=== PATIENT | female | born 1980 | race Caucasian/White ===

== ENCOUNTER 2020-05-18 14:57 | Outpatient (CLI) | payer OTHER, SELFPAY | END 2020-05-18 14:58 | disposition home or self-care (01) | PROVIDERS: PCP Internal Medicine; Visit Provider Obstetrics & Gynecology | DX: D25.9 Leiomyoma of uterus, unspecified (principal) | CPT/HCPCS: 36415; 86850; 86900; 86901 ==

== ENCOUNTER 2020-05-22 00:24 | Outpatient (CLI) | payer OTHER, SELFPAY ==
[2020-05-22 18:51] LABS: SARS-CoV-2 RNA PCR Negative
== END 2020-05-22 00:25 | disposition home or self-care (01) ==
LOC: ANHCOVIDDT 00:24
PROVIDERS: PCP Internal Medicine; Visit Provider Obstetrics & Gynecology
DX: Z01.818 Encounter for other preprocedural examination (principal); Z20.828 Contact with and (suspected) exposure to other viral communicable diseases
CPT/HCPCS: 87635; C9803; U0003

== ENCOUNTER 2020-05-25 00:37 | Day surgery (SDC) | payer OTHER, SELFPAY ==
[2020-05-17 10:06] VITALS: BMI 26.6
--- NOTE | 2020-05-23 08:08 | PM.IMHP ---
H&P: HPI History of Present Illness Date/Time: 05/23/20 08:08 Chief complaint: Uterine Fibroids Narrative: Jeanne Sanders is a 40 year old female 1 para 1 admitted for robotic total vaginal hysterectomy and bilateral salpingectomy. She has chronic pelvic pain and known uterine fibroids. Risks and benefits of this procedure reviewed including exclusive of , aspiration, bleeding, transfusion, perforation injury to bowel, bladder, ureters, or other internal organs with need for a year she was could understand who was received the ACOG handout entitled vaginal elevated postdates handout. She had all questions answered. She has seen a Review of Systems Review of Systems: All systems reviewed & are unremarkable except as noted in HPI and below PMFSH Family History Family History Father Family history of diabetes mellitus in first degree relative Family history of type 2 diabetes mellitus Grandparent Family history of lung cancer Social History Social History Years smoked: 18 Smoking status: Former smoker Tobacco type: cigarettes Second hand tobacco smoke exposure: No Smoking end date: 03/15/20 Alcohol intake: never Meds Home Medications and Allergies Home Medications Medication Instructions Recorded Confirmed Type cholecalciferol (vitamin D3) 125 20,000 unit PO DAILY #30 tablet 04/22/19 05/17/20 Rx mcg (5,000 unit) tablet multivitamin 1 tablet PO DAILY 04/22/19 05/17/20 History zolpidem 5 mg tablet 5 mg PO ONCE 04/22/19 05/17/20 History alprazolam 0.25 mg tablet 0.25 mg PO BID PRN #30 tablet 04/12/20 05/17/20 Rx Allergies Allergy/AdvReac Type Severity Reaction Status Date / Time No Known Allergies Allergy Verified 05/09/20 14:55 Exam Const: General: no acute distress Neck: Neck: supple and no JVD Thyroid: thyroid normal Resp: Effort & Inspection: normal respiratory effort Auscultation: clear to auscultation bilaterally Cardio: Rate: regular rate Rhythm: regular rhythm GI: Inspection: non-distended GI Palp: Yes Soft to palpation, No Tenderness to palpation present (GI) and No Guarding due to palpation present (GI) Auscultation: normal bowel sounds : General: Yes bladder normal to palpation External Female Exam: normal external appearance Speculum Exam - Vagina: normal appearance of the vagina Speculum Exam - Cervix: Cervical os closed Bimanual exam- vagina & uterus: enlarged Skin: General skin exam: no rashes or lesions noted Extrem: General: normal to inspection and no edema Psych: Mental Status: mental status grossly normal Affect: normal affect Assessment and Plan Additional Plan present: Enlarged uterus and pain Plan: Robotic total vaginectomy and bilateral salpingectomy
[2020-05-25] VITALS (17 sets, daily range): BP systolic 94–128; BP diastolic 66–79; PULSE 39–56; RESP 12–16; TEMP 36.2–37.3; O2SAT 97–100
[2020-05-25] MEDS: LACTATED RINGERS 1,000 ML 30 ML IV CONT ×2 (06:40→08:59)
[2020-05-25] MEDS: ACETAMINOPHEN 500 MG TABLET 1000 MG PO (06:49)
[2020-05-25] MEDS: KETOROLAC 15 MG/ML VIAL (*BKC) IV PUSH (06:51)
--- NOTE | 2020-05-25 06:52 | WPDHPUPDATE1 ---
History and Physical Update Update Date/Time: 05/25/20 06:52 History and Physical has been reviewed, including an updated exam of the patient. There are NO changes in the patient's condition. Risks, benefits, and alternatives have been discussed and questions answered. Patient agrees to proceed with procedure.
--- NOTE | 2020-05-25 07:04 | WPDANESEPPF ---
Anes - Initial Pre Proc Eval Procedure: Operation Date: 05/25/20 07:30 Proposed Procedures p Robotic Assisted Total Vaginal Hysterectomy With Bilateral Salpingectomy - Jean-Claude Montalvo MD Date/Time: 05/25/20 07:04 Surgeon: Jean-Claude Montalvo MD Pre Op Diagnosis: Uterine Fibroids Patient Data Age: 40 Gender: F Height: 5 ft 6 in Weight: 74 kg Last Vital Signs Temp 97.5 F L 05/25/20 06:40 Pulse 56 L 05/25/20 06:40 Resp 16 05/25/20 06:40 BP 106/73 05/25/20 06:40 Pulse Ox 98 05/25/20 06:40 Allergies Allergy/AdvReac Type Severity Reaction Status Date / Time No Known Allergies Allergy Verified 05/25/20 06:18 Home Medications Medication Instructions Recorded Confirmed Type cholecalciferol (vitamin D3) 125 20,000 unit PO DAILY #30 tablet 04/22/19 05/25/20 Rx mcg (5,000 unit) tablet multivitamin 1 tablet PO DAILY 04/22/19 05/25/20 History zolpidem 5 mg tablet 5 mg PO ONCE 04/22/19 05/25/20 History alprazolam 0.25 mg tablet 0.25 mg PO BID PRN #30 tablet 04/12/20 05/25/20 Rx hydrocodone-acetaminophen [[place]] 1 tablet PO Q4H PRN #30 tablet 05/25/20 Rx Patient hx anesthesia problems: none Family hx anesthesia problems: none PMFSH Past Medical History Medical History (Updated 05/25/20 @ 07:04 by Mina Bowser MD) Anxiety Migraine Family History Family History Father Family history of diabetes mellitus in first degree relative Family history of type 2 diabetes mellitus Grandparent Family history of lung cancer Social History Social History Years smoked: 18 Smoking status: Former smoker Tobacco type: cigarettes Second hand tobacco smoke exposure: No Smoking end date: 03/15/20 Alcohol intake: never Living arrangements: with family Anes - Eval Final PreProcedure Day of Procedure 05/25/20 07:04 Patient weight: normal Heart: regular rate and rhythm Lungs: clear to auscultation Airway: Mallampati scale class II Neurological: alert and oriented Last oral intake: >/= 8 hours ASA classification: II Emergent: no Anesthetic plan: proceed Anesthesia type and monitoring: general ETT and standard monitoring Informed Consent: The patient's anesthetic plan and its attendant risks and benefits were discussed with the patient/family/POA. Questions were solicited and answers provided to the satisfaction of the patient/family/POA.
[2020-05-25] MEDS: ceFAZolin 2 GM/D5W 50 ML 2 GM/50 ML BAG IVPB (07:22)
--- NOTE | 2020-05-25 08:23 | PM.PROC ---
Procedure Note - Detailed Date of procedure: 05/25/20 Pre-op diagnosis: Uterine Fibroids Surgeon: Jean-Claude Montalvo MD Postop diagnosis: Uterine fibroids/enlarged uterus/pelvic pain Procedure: Robotic total vaginal hysterectomy and bilateral salpingectomies EBL: 10cc Anesthesia: General endotracheal Findings: Normal-appearing ovaries and tubes bilaterally. An enlarged fibroid uterus Complications: None Description of procedure: The patient was prepped and draped in the normal sterile fashion and placed in the dorsal lithotomy position. Under excellent general endotracheal anesthesia weighted speculum was placed in posterior fornix of vagina. The anterior lip of the cervix grasped with single-tooth tenaculum. The uterus sounded to 12cm. Serial dilatation with fragmented dilators performed. This was followed by placement of the 10. [place] and the 4. Cold cup. The remainder of the instruments removed. A 16 [place] catheter was placed in the bladder and drained of clear urine. Gloves were changed. A supraumbilical incision made in the [place] needle passed in the abdomen. The abdomen was filled with CO2 gas [id number]. The 8mm trocar was advanced in the abdomen and the downside visualized. No injury seen. The patient placed in Trendelenburg. Right and left lateral quadrant incisions made and the 8mm trocars advanced under direct visualization assuring no injury. A right upper quadrant incision made in the 10mm trocar advanced under direct visualization assuring no injury. The robot was docked Attention was turned to the console. The left round ligament was grasped, burned, cut. Anteriorly a bladder flap was formed by sharply dissecting the bladder away and reflecting it caudally to the opposite round ligament which was clamped, burned, cut. Next the left fallopian tube was sharply dissected with monopolar cautery and brought to the level of its entrance in the uterus. This was repeated to remove the tube on the right side. Next the left utero-ovarian ligament was skeletonized conserving the left ovary. This was then clamped, burned, cut. This was brought to the level of previously cut round ligament. In like fashion conserving the right ovary the utero-ovarian ligament was clamped, burned, cut. This was brought to the level of the previously cut round ligament. The left cardinal and broad ligaments were then serially skeletonized. These were clamped, burned, cut. They were brought down the lateral edge of the uterus until the large tortuous uterine vessels could be seen. These were individually clamped, burned, cut. In like fashion the right cardinal and broad ligaments were serially skeletonized. These were clamped, burned, cut. There brought down to the level uterine vessels on the right. These were large and tortuous as well. Individual each was clamped, burned, cut. Blanching of the uterus was noted. A colpotomy incision was then made in the uterus cervix tubes removed through the vagina. The vagina was closed with continuous running 0V lock from lateral edge to lateral edge back to the midline. Blood loss was estimated 10cc and irrigation was undertaken. The raw areas were sprinkled with Cliff term. All pedicles appeared dry. The robot was undocked. The gas removed from the abdomen. The incisions closed with 4 O Monocryl and glue. The patient was awakened. All sponge, needle, instrument counts were correct. There were no immediate complications noted.
[2020-05-25] MEDS: ONDANSETRON INJ 4 MG/2 ML VIAL IV PUSH (08:47)
[2020-05-25] MEDS: diphenhydrAMINE HCl INJ 50 MG/ML VIAL 25 MG IV PUSH (09:11)
[2020-05-25] MEDS: SCOPOLAMINE 1.5 MG PATCH TRANSDERM (09:54)
--- NOTE | 2020-05-25 10:07 | OBPPTRN ---
Patient transferred to room # 283 via bed. Oriented to room. Patient verbalizes understanding. VSS. 1020: Pt's pulse running in the 40's. Pt states she exercises regularly and routinely runs a low pulse.
[2020-05-25] MEDS: DEXTROSE 5%/LACTATED RINGERS 1,000 ML 125 ML IV CONT (10:22)
[2020-05-25] MEDS: KETOROLAC 30 MG/ML VIAL (*BKC) IV PUSH (12:08)
[2020-05-25] MEDS: HYDROcodone/acetaminophen (*CRX) 5-325 MG TABLET 1 TAB PO ×4 (14:03→22:30)
[2020-05-25] MEDS: SIMETHICONE 80 MG TAB.CHEW PO ×4 (14:04→22:30)
[2020-05-25] MEDS: DOCUSATE SODIUM 100 MG CAPSULE PO (17:34)
[2020-05-25] MEDS: IBUPROFEN 600 MG TABLET PO (18:41)
[2020-05-26 01:15] VITALS: BP 104/68; PULSE 54; RESP 16; TEMP 36.7; O2SAT 99
[2020-05-26] MEDS: IBUPROFEN 600 MG TABLET PO ×2 (01:22→07:40)
[2020-05-26] MEDS: HYDROcodone/acetaminophen (*CRX) 5-325 MG TABLET 1 TAB PO ×2 (01:22→04:38)
[2020-05-26] MEDS: SIMETHICONE 80 MG TAB.CHEW PO ×3 (01:22→07:41)
[2020-05-26 04:30] VITALS: BP 104/61; PULSE 55; RESP 16; TEMP 36.7; O2SAT 98
[2020-05-26 06:26] LABS: Basophils Percent Auto 0.2 % (0.2-1.2); Eosinophils Absolute Auto 0.1 K/mm3 (0-0.3); Eosinophils Percent Auto 0.6 % (0-4.4); Hematocrit 36.5 % (37.0-47.0); Immature Granulocyte Absolute 0.03 K/mm3 (0.00-0.031); Immature Granulocyte Percent A 0.3 % (0-0.5); Lymphocytes Absolute Auto 2.03 K/mm3 (0.9-3.2); Lymphocytes Percent Auto 20.9 % (18.3-44.2); Mean Corpuscular HGB Conc 32.9 g/dl (32-36); Mean Corpuscular Hemoglobin 32.3 pg (26-34); Mean Corpuscular Volume 98.1 fl (80-100); Mean Platelet Volume 10.7 fl (7.4-10.4); Monocytes Absolute Auto 0.7 K/mm3 (0.1-0.6); Monocytes Percent Auto 6.9 % (2.6-8.5); Neutrophils Absolute Auto 6.9 K/mm3 (1.3-6.7); Neutrophils Percent Auto 71.1 % (45.5-73.1); Platelet Count Result 155 k/mm3 (150-375); Red Blood Count 3.72 M/mm3 (4.2-5.4); Red Cell Distribution Width 12.2 % (11.5-14.5); White Blood Count 9.7 K/mm3 (4.5-10.0)
[2020-05-26] MEDS: ENOXAPARIN 40 MG/0.4 ML SYRINGE SUB-Q (07:40)
[2020-05-26] MEDS: DOCUSATE SODIUM 100 MG CAPSULE PO (07:41)
[2020-05-26 08:00] VITALS: BP 104/71; PULSE 45; RESP 18; TEMP 36.8; O2SAT 100
--- NOTE | 2020-05-26 08:10 | PC.NURSE ---
Discharge instructions given to pt. including when to follow up with Dr. Joselito Fall. Discharge packet given and explained. Pt. verbalized understanding. Very pleasant and cooperative.
--- NOTE | 2020-05-26 09:09 | PM.GYNPNOP ---
POLYMER MATERIALS CONSULTANT - A/P Postoperative Procedures: Procedures Operation Date: 05/25/20 07:30 Actual Procedures Side Surgeon p Robotic Assisted Total Vaginal Hysterectomy With Bilateral Salpingectomy Jean-Claude Montalvo MD Time Spent With Patient Time with patient: less than 15 minutes POLY[employer] MATERIALS CONSULTANT- PN:Subj Post-Op Subjective Date/time seen: 05/26/20 09:09 Interval history: Pain OK. Tolerating diet. Voiding. Would like to go home. Exam Narrative: Exam Narrative: AVSS I/O OK ABD soft, nontender. Incisions c/d/i. EXT nontender POLY[employer] MATERIALS CONSULTANT - PN: Obj Data Vital Signs Vital Signs: Vital Signs - 24 hr 05/25/20 09:10 05/25/20 09:25 05/25/20 09:40 Temperature Pulse Rate 53 L 49 L 44 L Respiratory Rate 14 14 12 Blood Pressure 94/71 L 128/73 126/74 Pulse Oximetry 100 100 100 05/25/20 09:55 05/25/20 10:07 05/25/20 10:15 Temperature 36.5 C Pulse Rate 42 L 41 L 39 L Respiratory Rate 12 16 16 Blood Pressure 128/79 114/75 119/76 Pulse Oximetry 99 100 100 05/25/20 10:30 05/25/20 11:00 05/25/20 11:30 Temperature Pulse Rate 40 L 42 L 45 L Respiratory Rate 16 16 16 Blood Pressure 112/75 118/75 107/70 Pulse Oximetry 100 100 100 05/25/20 12:00 05/25/20 13:00 05/25/20 14:00 Temperature 37.3 C Pulse Rate 48 L 48 L 49 L Respiratory Rate 16 16 16 Blood Pressure 113/70 107/68 111/70 Pulse Oximetry 99 97 98 05/25/20 18:45 05/26/20 01:15 05/26/20 04:30 Temperature 36.8 C 36.7 C 36.7 C Pulse Rate 47 L 54 L 55 L Respiratory Rate 16 16 16 Blood Pressure 113/73 104/68 104/61 Pulse Oximetry 99 99 98 05/26/20 08:00 Temperature 36.8 C Pulse Rate 45 L Respiratory Rate 18 Blood Pressure 104/71 Pulse Oximetry 100 Intake/Output Intake/Output: Intake & Output 05/23/20 05/24/20 05/25/20 05/26/20 23:59 23:59 23:59 23:59 Intake Total 3240 1200 Output Total 2150 1100 Balance 1090 100 Meds/Results Medications: Active Medications Generic Name Dose Route Start Last Admin Trade Name Freq PRN Reason Stop Dose Admin Hydrocodone Bitart/Acetaminophen 1 tab 05/25/20 10:04 05/26/20 04:38 Hydrocodone/Acetaminophen (*Crx) 5-325 Mg Tablet PO 0.5 tab Q3H PRN Administration Pain Rated 5 or Less Hydrocodone Bitart/Acetaminophen 1 tab 05/25/20 10:04 Hydrocodone/Acetaminophen (*Crx) 10-325 Mg Tablet PO Q3H PRN Pain Rated 6 or Greater Docusate Sodium 100 mg 05/25/20 10:04 05/26/20 07:41 Docusate Sodium 100 Mg Capsule PO 100 mg BID VANDANA Administration Enoxaparin Sodium 40 mg 05/26/20 07:00 05/26/20 07:40 Enoxaparin 40 Mg/0.4 Ml Syringe SUB-Q 40 mg DAILY VANDANA Administration Dextrose/Lactated Ringer's 1,000 mls @ 125 mls/hr 05/25/20 10:04 05/25/20 10:22 Dextrose 5%/Lactated Ringers IV CONT 125 mls/hr .Q8H VANDANA Administration Ibuprofen 600 mg 05/25/20 10:04 05/26/20 07:40 Ibuprofen 600 Mg Tablet PO 600 mg Q6H PRN Administration Cramping Ketorolac Tromethamine 30 mg 05/25/20 10:04 05/25/20 12:08 Ketorolac 30 Mg/Ml Vial (*Bkc) IV PUSH 05/30/20 10:05 30 mg Q6H PRN Administration Pain Rated 4-6 Morphine Sulfate 4 mg 05/25/20 10:04 Morphine Sulfate (*Crx) 4 Mg/Ml Inj IV PUSH Q4H PRN Severe breakthrough pain Naloxone HCl 0.1 mg 05/25/20 10:04 Naloxone Hcl 0.4 Mg/Ml Vial IV PUSH Q2M PRN Respiratory rate less than 10 Ondansetron HCl 4 mg 05/25/20 10:04 Ondansetron Inj 4 Mg/2 Ml Vial IV PUSH Q6H PRN Nausea And Vomiting Simethicone 80 mg 05/25/20 10:04 05/26/20 07:41 Simethicone 80 Mg Tab.Chew PO 80 mg Q2H PRN Administration Gas Labs CBC & Chem 7: 05/26/20 04:45 Labs: Laboratory Results - last 24 hr 05/26/20 04:45 WBC 9.7 RBC 3.72 L Hgb 12.0 Hct 36.5 L MCV 98.1 MCH 32.3 MCHC 32.9 RDW 12.2 Plt Count 155 MPV 10.7 H Immature Gran % (Auto) 0.3 Neut % (Auto) 71.1 Lymph % (Auto) 20.9 [place] % (Auto) 6.9 Eos % (Auto) 0.6 B
--- NOTE | 2020-05-26 09:11 | P.DS_ITS ---
DS: Admitting Diagnosis Admitting Diagnosis Admitting Diagnosis: Uterine Fibroids DS: Discharge Diagnosis Discharge Diagnosis (1) Status post robot-assisted surgical procedure: Code(s): Z98.890 - Other specified postprocedural states Status: Acute DS: Data Data Completed and Pending Pending studies at discharge: Pending at discharge 05/25/20 08:02 Surgical [PTH] Routine Labs on day of discharge: Labs from last 24 hours 05/26/20 04:45 WBC 9.7 RBC 3.72 L Hgb 12.0 Hct 36.5 L MCV 98.1 MCH 32.3 MCHC 32.9 RDW 12.2 Plt Count 155 MPV 10.7 H Immature Gran % (Auto) 0.3 Neut % (Auto) 71.1 Lymph % (Auto) 20.9 [place] % (Auto) 6.9 Eos % (Auto) 0.6 Baso % (Auto) 0.2 Lymph # (Auto) 2.03 [place] # (Auto) 0.7 H Eos # (Auto) 0.1 Baso # (Auto) 0.0 Abs Immat Gran (auto) 0.03 Absolute Neuts (auto) 6.9 H Absolute Nucleated RBC 0.0 Nucleated RBC % 0.0 Discharge Plan Discharge Patient Disposition: Home, Self-Care Discharge Instructions: Remove the Scopolamine patch that was placed behind your ear in 72 hours or less. Wash your hands after touching. Some Complications to Watch for: ? Excessive incisional or vaginal drainage (more than on pad an hour). Additional Instructions: ? Expect some vaginal spotting for 2-4 days. ? Nothing vaginally (i.e. douching, intercourse, tampons) until follow up visit. Stand Alone Forms: General Discharge Instructions Follow-up/Referrals: Jean-Claude Montalvo MD [Physician] - Discharge Medications: New hydrocodone-acetaminophen [[place]] 5-325 mg tablet 1 tablet PO Q4H PRN (Reason: pain) Qty: 30 RF: 0 No Action cholecalciferol (vitamin D3) [Vitamin D3] 5,000 unit tablet 20,000 unit PO DAILY Qty: 30 RF: 0 multivitamin [One Daily Multivitamin] Tablet 1 tablet PO DAILY RF: 0 zolpidem [Ambien] 5 mg tablet 5 mg PO ONCE RF: 0 alprazolam 0.25 mg tablet 0.25 mg PO BID PRN (Reason: anxiety) Qty: 30 RF: 0
== END 2020-05-26 08:57 | disposition home or self-care (01) ==
LOC: ANHSURGERY 09:53 → ANHOB2 10:14
PROVIDERS: PCP Internal Medicine; Visit Provider Obstetrics & Gynecology
PROC: (CPT 58552; principal; 2020-05-25 07:30)
DX: D25.1 Intramural leiomyoma of uterus (principal); D25.2 Subserosal leiomyoma of uterus; N80.0 Endometriosis of uterus; F41.9 Anxiety disorder, unspecified; Z87.891 Personal history of nicotine dependence
CPT/HCPCS: 58552; S2900; 36415; 85025; 88307; 99199; A9270; J0690; J1100; J1170; J1200; J1650; J1885; J2250; J2405; J2704; J2710; J3010; J7030; J7120; J7121

== ENCOUNTER 2021-04-02 17:07 | Emergency (ER) | payer BC, SELFPAY ==
--- NOTE | ~2021-04-02 | XR_ITS ---
EXAMINATION: XR chest 2V DATE: 04/02/2021 17:29 INDICATION: Left-sided chest pain TECHNIQUE: PA and lateral views of the chest are obtained. COMPARISON: None available FINDINGS: The lungs are free of acute opacities. There is no pleural effusion or pneumothorax. The ca rdiomediastinal silhouette is normal. There is mild thoracic spondylosis. IMPRESSION: 1. No acute cardiopulmonary abnormality. Reviewed, dictated and finalized at location A.
--- NOTE | 2021-04-02 17:09 | ECG_ITS ---
Measurements Intervals [place] Rate: 62 P: 53 DE: 143 QRS: 62 QRSD: 93 T: 54 QT: 397 QTc: 405 Interpretive Statements SINUS RHYTHM VENTRICULAR PREMATURE COMPLEX BORDERLINE ECG Electronically Signed On 04-02-2021 20:11:19 CDT by Melvin Foster D.O.
[2021-04-02 17:15] VITALS: BP 130/83; PULSE 77; RESP 17; TEMP 36.2; O2SAT 98
[2021-04-02 17:35] LABS: Basophils Absolute Auto 0.1 K/mm3 (0.0-0.1); Basophils Percent Auto 0.6 % (0.2-1.2); Eosinophils Absolute Auto 0.2 K/mm3 (0-0.3); Eosinophils Percent Auto 2.4 % (0-4.4); Hematocrit 42.6 % (37.0-47.0); Hemoglobin 14.2 g/dL (12.0-15.0); Immature Granulocyte Absolute 0.02 K/mm3 (0.00-0.031); Immature Granulocyte Percent A 0.3 % (0-0.5); Lymphocytes Absolute Auto 2.05 K/mm3 (0.9-3.2); Lymphocytes Percent Auto 26.4 % (18.3-44.2); Mean Corpuscular HGB Conc 33.3 g/dl (32-36); Mean Corpuscular Hemoglobin 32.3 pg (26-34); Mean Corpuscular Volume 96.8 fl (80-100); Mean Platelet Volume 9.6 fl (7.4-10.4); Monocytes Absolute Auto 0.6 K/mm3 (0.1-0.6); Monocytes Percent Auto 7.1 % (2.6-8.5); Neutrophils Absolute Auto 4.9 K/mm3 (1.3-6.7); Neutrophils Percent Auto 63.2 % (45.5-73.1); Platelet Count Result 208 k/mm3 (150-375); White Blood Count 7.8 K/mm3 (4.5-10.0)
[2021-04-02 17:42] LABS: INR 0.9; Prothrombin Time 12.2 Seconds (11.1-14.7)
[2021-04-02 17:43] LABS: Partial Thromboplastin Time 28.5 SECONDS (22.3-36.8)
[2021-04-02 17:45] LABS: Anion Gap 8 mmol/L (8-16); Blood Urea Nitrogen 20 mg/dL (7-17); Calcium 9.9 mg/dL (8.4-10.2); Carbon Dioxide 31 mmol/L (22-30); Chloride 101 mmol/L (98-107); Estimated CRCL calculation 68 ml/min; Estimated Glomerular Filt Rate > 60; Glucose 86 mg/dL (65-110); Potassium 3.6 mmol/L (3.4-5.0); Sodium 140 mmol/L (137-145)
[2021-04-02 17:58] LABS: Troponin I < 0.012 ng/mL (0.000-0.034)
[2021-04-02 18:32] VITALS: BP 126/84; PULSE 54; RESP 12; O2SAT 98
[2021-04-02] MEDS: ASPIRIN 81 MG CHEWABLE TABLET 324 MG PO (18:33)
--- NOTE | 2021-04-02 19:08 | ED.GENADULT ---
HPI - General Adult General Chief complaint: Chest Pain Stated complaint: chest pain Time Seen by Provider: 04/02/21 18:26 History of Present Illness HPI narrative: Patient is a 41-year-old female who presents ER with left-sided chest pain. Intermittent over the last couple days. Last about 3 minutes at a time. Began anterior chest is wraparound towards her back. No rash. No fevers or chills or sweats. Denies sinus congestion or sore throat or productive cough. No exertional shortness of breath. No hemoptysis. No lower extremity swelling. She is not on control. No history of coronary disease or previous PE/DVT. No history of trauma, reports she works out regularly. Related Data Home Medications Medication Instructions Recorded Confirmed multivitamin 1 tablet PO DAILY 04/22/19 02/03/21 zolpidem 5 mg tablet 5 mg PO ONCE 04/22/19 02/03/21 famotidine 20 mg tablet 20 mg PO DAILY 10/10/20 02/03/21 Allergies Allergy/AdvReac Type Severity Reaction Status Date / Time No Known Allergies Allergy Verified 01/30/21 16:26 Review of Systems Review of Systems: All systems reviewed & are unremarkable except as noted in HPI and below Constitutional: Constitutional: Denies chills, Denies fever(s) and Denies weakness ENT: Denies nasal congestion and Denies sore throat Cardiovascular: Cardiovascular: Reports chest pain and Denies radiating jaw, neck or arm pain Respiratory: Respiratory: Denies cough, Denies dyspnea and Denies wheezing Gastrointestinal: Gastrointestinal: Denies abdominal pain, Denies diarrhea, Denies nausea and Denies vomiting Musculoskeletal: Musculoskeletal: Denies back pain and Denies muscle cramps Neurologic: Denies focal weakness and Denies numbness [facility] Past Medical History Medical History (Updated 04/02/21 @ 19:13 by Ashwin Davila MD) Anxiety Chronic GERD Migraine Surgical History Surgical History (Updated 04/02/21 @ 19:11 by Ashwin Davila MD) No pertinent past surgical history Family History Family History Father Family history of diabetes mellitus in first degree relative Family history of type 2 diabetes mellitus Diabetes mellitus Grandparent Family history of lung cancer Mother Depression Social History Social History Years smoked: 18 Smoking status: Former smoker Tobacco type: cigarettes Second hand tobacco smoke exposure: No Smoking end date: 03/15/20 Alcohol intake: never Substance use: never Substance use type: does not use Exam Narrative: GENERAL: Well-appearing, well-nourished, and in no acute distress. HEAD: Normocephalic, atraumatic. CHEST: Clear to auscultation. No respiratory distress. Mild tenderness to the left chest wall with lateral compression. HEART: Regular rate and rhythm. Normal peripheral pulses. ABDOMEN: Soft, nontender, nondistended. EXTREMITIES: Normal range of motion. No edema. SKIN: Warm, dry, no rash. NEURO: Alert and oriented x3. PSYCH: Normal mood and affect. Course Course Emergency Course: Patient informed of results. Discharge home. Recommend scheduled NSAIDs for discomfort. Chest wall strain versus pleurisy. Vital Signs Vital signs: Vital Signs Temperature 97.2 F L 04/02/21 17:15 Pulse Rate 77 04/02/21 17:15 Respiratory Rate 17 04/02/21 17:15 Blood Pressure 130/83 04/02/21 17:15 Pulse Oximetry 98 04/02/21 17:15 Temperature 97.2 F L 04/02/21 17:15 Pulse Rate 54 L 04/02/21 18:32 Respiratory Rate 12 04/02/21 18:32 Blood Pressure 126/84 04/02/21 18:32 Pulse Oximetry 98 04/02/21 18:32 Medical Decision Making Vital Signs Vital Signs: Vital Signs Temperature 97.2 F L 04/02/21 17:15 Pulse Rate 77 04/02/21 17:15 Respiratory Rate 17 04/02/21 17:15 Blood Pressure 130/83 04/02/21 17:15 Pulse Oximetry 98 04/02/21 17:15 Temperat
[2021-04-02 19:22] VITALS: BP 114/97; PULSE 53; RESP 16; O2SAT 100
== END 2021-04-02 19:24 | disposition home or self-care (01) ==
PROVIDERS: Emergency Medicine; Emergency Provider Emergency Medicine
DX: R07.89 Other chest pain (principal); K21.9 Gastro-esophageal reflux disease without esophagitis; F41.9 Anxiety disorder, unspecified; Z87.891 Personal history of nicotine dependence; I49.3 Ventricular premature depolarization
CPT/HCPCS: 36415; 71046; 80048; 84484; 85025; 85610; 85730; 93005; 99284; A9270

== ENCOUNTER → 2021-04-09 11:58 | Outpatient (CLI) | payer BC, SELFPAY ==
--- NOTE | ~2021-04-09 | MMUS_ITS ---
EXAMINATION: MM diagnostic fabi BI w [place], US breast BI complete HISTORY: Left axillary lump, left breast pain. History of recent left breast infection treated with a ntibiotics, with recent reemergence of left breast pain. TECHNIQUE: Full field bilateral ML, MLO and craniocaudal and spot right MLO, MLO and craniocaudal 3-D tomosynthesis images were performed and synthetic 2-D images were generated. CAD analysis was submit mohsen and interpreted. High resolution complete bilateral and left axillary breast ultrasound was perfo rmed, including all 4 quadrants and subareolar areas of both breasts. COMPARISON: 04/03/2017 diagnostic left mammogram BREAST PARENCHYMAL COMPOSITION: There are scattered areas of fibroglandular density. FINDINGS: MAMMOGRAPHIC FINDINGS: There is asymmetric density of the right breast compared to the left. This may be due to asymmetric f ibroglandular stroma, but right complete breast ultrasound examination was performed to exclude any p ossible mass. No left breast mass lesion is detected. Stable small left axillary tail circumscribed benign-appearin g lymph node, unchanged since 04/03/2017. No interval left breast mass, architectural distortion, mal ignant calcification, skin thickening or retraction is noted since 04/03/2017. ULTRASOUND: No suspicious mass or shadowing of either breast or left axilla is detected. IMPRESSION: 1. Benign finding; benign right fibroglandular asymmetry 2. Routine mammographic screening is recommended BI-RADS Category 2: Benign finding(s). Reviewed, dictated and finalized at location A. IMPRESSION: 1. Benign finding; benign right fibroglandular asymmetry 2. Routine mammographic screening is recommended BI-RADS Category 2: Benign finding(s).
== END ==
PROVIDERS: Visit Provider Obstetrics & Gynecology
DX: N64.4 Mastodynia (principal)
CPT/HCPCS: 76641; 77062; 77066; G0279

== ENCOUNTER → 2022-04-11 14:28 | Outpatient (CLI) | payer BC, SELFPAY ==
--- NOTE | ~2022-04-11 | MM_ITS ---
EXAMINATION: MM screening [facility] BI w [place] HISTORY: Screening TECHNIQUE: Craniocaudal and mediolateral oblique 3-D tomosynthesis images were obtained and synthetic 2-D images were generated. CAD analysis was submitted and interpreted. COMPARISON: Comparison to multiple prior studies sequentially, with oldest reviewed study dated 03/16. BREAST PARENCHYMAL COMPOSITION: There are scattered areas of fibroglandular density. FINDINGS: There is no evidence of suspicious mass, calcification, or architectural distortion to sugg est malignancy in either breast. There has been no suspicious interval change. IMPRESSION: 1. No mammographic evidence of malignancy. 2. Recommend routine screening mammography in one year. BI-RADS Category 1: Negative Reviewed, dictated and finalized at location A.
== END ==
PROVIDERS: PCP Internal Medicine; Visit Provider Obstetrics & Gynecology
DX: Z12.31 Encounter for screening mammogram for malignant neoplasm of breast (principal)
CPT/HCPCS: 77063; 77067

== ENCOUNTER → 2022-04-11 14:32 | Outpatient (CLI) | payer BC, SELFPAY ==
--- NOTE | ~2022-04-11 | XR_ITS ---
XR cervical spine 4-5V 04/11/2022 14:44 Indication: Neck pain Procedure: 4 views of the cervical spine Comparison: 11/30/2017 Findings: There is mild disc narrowing at C4-5, C5-6 and C6-7. There is normal cervical alignment. No prevertebral soft tissue swelling. Odontoid process is normal. Lateral masses normally aligned. Ther e is mild uncinate degenerative change at multiple levels. Lung apices are normal. Impression: 1: Mild cervical spondylosis. Reviewed, dictated and finalized at location B. Impression: 1: Mild cervical spondylosis.
== END ==
PROVIDERS: PCP Internal Medicine; Visit Provider Physician Assistant
DX: M47.892 Other spondylosis, cervical region (principal)
CPT/HCPCS: 72050

== ENCOUNTER 2023-06-08 20:48 | Emergency (ER) | payer BC, SELFPAY ==
[2023-06-08] VITALS (14 sets, daily range): BP systolic 109–150; BP diastolic 69–93; PULSE 52–63; RESP 10–19; TEMP 36.2; O2SAT 98–100
--- NOTE | ~2023-06-08 | XR_ITS ---
EXAMINATION: XR chest 2V 06/08/2023 21:22 INDICATION: Chest pain PROCEDURE: 2 view chest COMPARISON: Comparison to multiple prior studies sequentially, with oldest reviewed study dated 04/16. FINDINGS: The lungs are clear. The cardiomediastinal silhouette is within normal limits. There are no pleural effusions. There is no pneumothorax suspected. IMPRESSION: 1: NO ACUTE CARDIOPULMONARY DISEASE. Reviewed, dictated and finalized at location A. 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
--- NOTE | 2023-06-08 20:54 | ECG_ITS ---
Measurements Intervals [place] Rate: 63 P: 68 NM: 158 QRS: 53 QRSD: 86 T: 51 QT: 406 QTc: 418 Interpretive Statements SINUS RHYTHM COMPARED TO ECG 04/02/2021 17:12:59 NO SIGNIFICANT CHANGES Electronically Signed On 06-09-2023 15:55:08 ACCOUNT ADVISOR by Tan Oconnor M.D.
--- NOTE | 2023-06-08 21:07 | ED.CHESTPAIN ---
HPI - Chest Pain General Chief Complaint: Chest Pain Stated Complaint: CP Time Seen by Provider: 06/08/23 21:01 Source: patient Mode of arrival: ambulatory Limitations: no limitations History of Present Illness HPI narrative: Patient p/w chest pain at rest. She is also dizzy. No palliating/provoking factors. Described as a dull pain that radiates to left arm with numbness. It had also radiated to her neck and jaw but she states this has improved. She denies any fevers or cough or lower extremity edema. 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 She states she was experiencing chest pain Thursday but this was located under her left breast just different than pain today. No associated diaphoresis. She has been nauseated but denies any vomiting shortness breast. In general , she has been fatigued. Related Data Home Medications Medication Instructions Recorded Confirmed multivitamin (One Daily 1 tablet PO DAILY 04/22/19 11/03/22 Multivitamin tablet) zolpidem 5 mg tablet (Ambien) 5 mg PO ONCE 04/22/19 11/03/22 famotidine 20 mg tablet 20 mg PO DAILY 10/10/20 11/03/22 levothyroxine 25 mcg capsule 25 mcg PO DAILY 04/11/22 11/03/22 Allergies Allergy/AdvReac Type Severity Reaction Status Date / Time No Known Allergies Allergy Verified 06/08/23 20:53 [facility] Past Medical History Medical History Anxiety Chronic GERD Migraine Surgical History Surgical History No pertinent past surgical history Family History Family History Father Family history of diabetes mellitus in first degree relative Family history of type 2 diabetes mellitus Diabetes mellitus Grandparent Family history of lung cancer Mother Depression Social History Social History Years smoked: 18 Smoking status: Former smoker Tobacco type: cigarettes Second hand tobacco smoke exposure: No Smoking end date: 03/15/20 Alcohol intake: never Substance use: never Substance use type: does not use Lack of Transportation: No Lack of Food: Never True Current Housing: I Have Housing Concerned About Future Housing: No Difficulty Paying Gas/Electric Bills: No Difficulty Paying for Meds: No Currently Unemployed: No Difficulty w/ Childcare or Family Care: No Living arrangements: with family Exam Narrative: GENERAL: Well-appearing, well-nourished, and in no acute distress. HEAD: Normocephalic, atraumatic. EYES: Non injected, non icteric ENT: Nares clear, no rhinorrhea or epistaxis. NECK: Supple. CHEST: Clear to auscultation without wheezes/crackles/consolidation. No respiratory distress. Speaking in full sentences. HEART: Regular rate and rhythm. ABDOMEN: Soft, nondistended. EXTREMITIES: Normal range of motion. No edema. SKIN: Warm, dry, no rash. NEURO: No focal deficits. Alert and oriented x3. PSYCH: Normal mood and affect. Course Vital Signs Vital signs: Vital Signs Temperature 97.2 F L 06/08/23 20:50 Pulse Rate 60 06/08/23 20:50 Respiratory Rate 16 06/08/23 20:50 Blood Pressure 150/88 H 06/08/23 20:50 Pulse Oximetry 100 06/08/23 20:50 Oxygen Delivery Room Air 06/08/23 20:50 Temperature 97.2 F L 06/08/23 20:50 Pulse Rate 57 L 06/09/23 00:16 Respiratory Rate 14 06/09/23 00:16 Blood Pressure 114/75 06/09/23 00:16 Pulse Oximetry 100 06/09/23 00:16 Oxygen Delivery Room Air 06/08/23 21:03 MDM - Chest Pain MDM Narrative Medical decision making narrative: Patient presents with chest pain radiating to her left arm. Unremarkable CBC. Negative troponin x2. Viral test negative. Work up without clear etiology for cause of chest pain. She is otherwise low risk and will be discha
[2023-06-08 21:17] LABS: Basophils Percent Auto 0.7 % (0.2-1.2); Eosinophils Absolute Auto 0.2 K/mm3 (0-0.3); Eosinophils Percent Auto 3.3 % (0-4.4); Immature Granulocyte Absolute 0.01 K/mm3 (0.00-0.031); Immature Granulocyte Percent A 0.2 % (0-0.5); Lymphocytes Absolute Auto 2.42 K/mm3 (0.9-3.2); Lymphocytes Percent Auto 39.3 % (18.3-44.2); Mean Corpuscular HGB Conc 32.5 g/dl (32-36); Mean Corpuscular Hemoglobin 31.5 pg (26-34); Mean Corpuscular Volume 96.9 fl (80-100); Mean Platelet Volume 9.9 fl (7.4-10.4); Monocytes Absolute Auto 0.4 K/mm3 (0.1-0.6); Monocytes Percent Auto 7.2 % (2.6-8.5); Neutrophils Percent Auto 49.3 % (45.5-73.1); Platelet Count Result 206 k/mm3 (150-375); Red Blood Count 4.13 M/mm3 (4.2-5.4); Red Cell Distribution Width 12.3 % (11.5-14.5); White Blood Count 6.2 K/mm3 (4.5-10.0)
[2023-06-08 21:27] LABS: Partial Thromboplastin Time 30.8 SECONDS (22.3-36.8); Prothrombin Time 13.9 Seconds (11.1-14.7)
[2023-06-08 21:30] LABS: Alanine Aminotransferase 19 U/L (6-35); Albumin Level 4.5 g/dL (3.5-5.1); Alkaline Phosphatase 43 U/L (38-126); Anion Gap 9 mmol/L (8-16); Aspartate Amino Transferase 27 U/L (14-36); Bilirubin,Total 0.3 mg/dL (0.2-1.3); Blood Urea Nitrogen 11 mg/dL (7-17); Carbon Dioxide 28 mmol/L (22-30); Chloride 104 mmol/L (98-107); Estimated CRCL calculation 67 ml/min; Estimated Glomerular Filt Rate > 60; Glucose 112 mg/dL (65-110); Lipase 150 U/L (23-300); Potassium 3.5 mmol/L (3.4-5.0); Sodium 141 mmol/L (137-145)
[2023-06-08 21:41] LABS: Troponin I < 0.012 ng/mL (0.000-0.034)
[2023-06-08 23:37] LABS: Influenza A QL RT-PCR Negative (Negative); Influenza B QL RT-PCR Negative (Negative); RSV RNA, RT-PCR Negative (Negative); SARS-CoV-2 RNA PCR Negative (Negative)
[2023-06-09 00:01] VITALS: BP 109/82; PULSE 57; RESP 11; O2SAT 100
[2023-06-09 00:16] VITALS: BP 114/75; PULSE 57; RESP 14; O2SAT 100
[2023-06-09 00:20] LABS: Troponin I < 0.012 ng/mL (0.000-0.034)
== END 2023-06-09 00:27 | disposition home or self-care (01) ==
PROVIDERS: Emergency Medicine; Emergency Provider Student in an Organized Health Care Education/Training Program; PCP Internal Medicine
DX: R07.9 Chest pain, unspecified (principal); Z87.891 Personal history of nicotine dependence; Z20.822 Contact with and (suspected) exposure to COVID-19
CPT/HCPCS: 36415; 71046; 80053; 83690; 84484; 85025; 85610; 85730; 87637; 93005; 99284

== ENCOUNTER → 2023-07-09 09:58 | Outpatient (CLI) | payer OTHER, SELFPAY ==
--- NOTE | ~2023-07-09 | MM_ITS ---
EXAMINATION: MM screening [facility] BI w [facility] HISTORY: Screening mammogram TECHNIQUE: Craniocaudal and mediolateral oblique 3-D tomosynthesis images were obtained and synthetic 2-D images were generated. CAD analysis was submitted and interpreted. COMPARISON: 06/11/2022, 04/09/2021, 04/03/2017 BREAST PARENCHYMAL COMPOSITION: There are scattered areas of fibroglandular density. FINDINGS: There is stable focal asymmetry of the outer right breast. No suspicious mass, calcificatio n, or architectural distortion are identified in either breast to suggest malignancy. There has been no suspicious interval change. IMPRESSION: 1. No mammographic evidence of malignancy. 2. Recommend routine screening mammography in one year. BI-RADS Category 2: Benign finding(s). Reviewed, dictated and finalized at location A. 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
== END ==
PROVIDERS: PCP Obstetrics & Gynecology; Visit Provider Obstetrics & Gynecology
DX: Z12.31 Encounter for screening mammogram for malignant neoplasm of breast (principal)
CPT/HCPCS: 77063; 77067

== ENCOUNTER 2023-09-26 10:04 | Outpatient (CLI) | payer OTHER, SELFPAY ==
--- NOTE | ~2023-09-26 | XR_ITS ---
EXAMINATION: XR thoracic spine 2V DATE: 09/26/2023 10:23 INDICATION: Thoracic back pain. TECHNIQUE: 3 views of thoracic spine including standing views were obtained. COMPARISON: Chest 2 views 06/08/2023 FINDINGS: Bone alignment is normal. There is mild chronic anterior wedging of T11, and T12, and L1 ve rtebral bodies. There is mildly decreased disc height at T6-T7. There are endplate osteophytes at mos t levels. There is multilevel mild facet joint osteoarthritis. IMPRESSION: 1. Mild thoracic spondylosis. Reviewed, dictated and finalized at location E.
--- NOTE | ~2023-09-26 | XR_ITS ---
EXAMINATION: XR cervical spine min 6V DATE: 09/26/2023 10:24 INDICATION: Neck pain. TECHNIQUE: 7 views of cervical spine including flexion and extension views were obtained. COMPARISON: Cervical spine radiographs 04/11/2022 FINDINGS: There is hypolordosis of cervical spine. There is 6 degrees levocurvature of cervical spine . There is no abnormal motion with flexion or extension. Vertebral body heights are normal. There is mildly decreased disc height at C4-C5 and moderately decreased disc height at C5-C6. There is multile conor mild facet joint osteoarthritis. There is no left neural foraminal stenosis. The right neural for yanely are not well visualized on the oblique view. There is mild central canal stenosis at C5-C6. No prevertebral soft tissue swelling. IMPRESSION: 1. Moderate spondylosis at C5-C6 and mild spondylosis at other levels. Reviewed, dictated and finalized at location E.
== END 2023-09-26 10:05 ==
LOC: MICIMG 10:06
PROVIDERS: PCP Internal Medicine; Visit Provider Chiropractor
DX: M54.2 Cervicalgia (principal); M54.6 Pain in thoracic spine; M43.02 Spondylolysis, cervical region; M43.04 Spondylolysis, thoracic region
CPT/HCPCS: 72052; 72070

== ENCOUNTER 2023-10-05 08:02 | Emergency (ER) | payer OTHER, SELFPAY ==
[2023-10-05] VITALS (16 sets, daily range): BP systolic 106–122; BP diastolic 68–83; PULSE 57–62; RESP 10–21; TEMP 36.6; O2SAT 98–100
--- NOTE | ~2023-10-05 | XR_ITS ---
EXAMINATION: XR chest 2V 10/05/2023 08:43 INDICATION: Chest pain PROCEDURE: 2 view chest COMPARISON: 06/08/2023 FINDINGS: The lungs are clear. The cardiomediastinal silhouette is within normal limits. There are no pleural effusions. There is no pneumothorax suspected. IMPRESSION: 1: NO ACUTE CARDIOPULMONARY DISEASE. Reviewed, dictated and finalized at location B.
--- NOTE | 2023-10-05 08:14 | ECG_ITS ---
SEE SCANNED COPY FOR CONFIRMED REPORT MTDD
[2023-10-05 08:33] LABS: Basophils Percent Auto 0.6 % (0.2-1.2); Eosinophils Absolute Auto 0.2 K/mm3 (0-0.3); Hematocrit 41.4 % (37.0-47.0); Hemoglobin 13.6 g/dL (12.0-15.0); Immature Granulocyte Absolute 0.01 K/mm3 (0.00-0.031); Immature Granulocyte Percent A 0.2 % (0-0.5); Lymphocytes Absolute Auto 1.24 K/mm3 (0.9-3.2); Lymphocytes Percent Auto 24.6 % (18.3-44.2); Mean Corpuscular HGB Conc 32.9 g/dl (32-36); Mean Corpuscular Hemoglobin 31.9 pg (26-34); Mean Platelet Volume 9.5 fl (7.4-10.4); Monocytes Absolute Auto 0.3 K/mm3 (0.1-0.6); Monocytes Percent Auto 5.7 % (2.6-8.5); Neutrophils Absolute Auto 3.3 K/mm3 (1.3-6.7); Neutrophils Percent Auto 65.9 % (45.5-73.1); Platelet Count Result 192 k/mm3 (150-375); Red Blood Count 4.27 M/mm3 (4.2-5.4); Red Cell Distribution Width 12.1 % (11.5-14.5); White Blood Count 5.1 K/mm3 (4.5-10.0)
[2023-10-05 08:45] LABS: Alanine Aminotransferase 21 U/L (6-35); Albumin Level 4.7 g/dL (3.5-5.1); Alkaline Phosphatase 39 U/L (38-126); Anion Gap 4 mmol/L (4-12); Aspartate Amino Transferase 26 U/L (14-36); Bilirubin,Total 0.5 mg/dL (0.2-1.3); Blood Urea Nitrogen 13 mg/dL (7-17); Calcium 9.5 mg/dL (8.4-10.2); Carbon Dioxide 31 mmol/L (22-30); Chloride 105 mmol/L (98-107); Estimated CRCL calculation 67 ml/min; Estimated Glomerular Filt Rate > 60; Glucose 88 mg/dL (65-110); Lipase 125 U/L (23-300); Potassium 3.9 mmol/L (3.4-5.0); Sodium 140 mmol/L (137-145)
[2023-10-05 08:55] LABS: Troponin I < 0.012 ng/mL (0.000-0.034)
[2023-10-05 09:05] LABS: Prothrombin Time 13.8 Seconds (11.1-14.7)
[2023-10-05 09:06] LABS: Partial Thromboplastin Time 30.2 Seconds (22.3-36.8)
--- NOTE | 2023-10-05 09:29 | ED.CHESTPAIN ---
HPI - Chest Pain General Chief Complaint: Chest Pain Stated Complaint: cp Time Seen by Provider: 10/05/23 08:46 History of Present Illness HPI narrative: Pt presents with sharp left lateral chest wall pain worse with a deep breath this morning. Pt said it was really painful but has now almost resolved. Pt denies injury or pain or swelling in legs or recent travel or surgery. oxygen sat 100% on RA. Related Data Home Medications Medication Instructions Recorded Confirmed multivitamin (One Daily 1 tablet PO DAILY 04/22/19 11/03/22 Multivitamin tablet) zolpidem 5 mg tablet (Ambien) 5 mg PO ONCE 04/22/19 11/03/22 famotidine 20 mg tablet 20 mg PO DAILY 10/10/20 11/03/22 levothyroxine 25 mcg capsule 25 mcg PO DAILY 04/11/22 11/03/22 Allergies Allergy/AdvReac Type Severity Reaction Status Date / Time No Known Allergies Allergy Verified 10/05/23 08:03 Review of Systems Review of Systems: All systems reviewed & are unremarkable except as noted in HPI and below PMFSH Past Medical History Medical History Anxiety Chronic GERD Migraine Surgical History Surgical History No pertinent past surgical history Family History Family History Father Family history of diabetes mellitus in first degree relative Family history of type 2 diabetes mellitus Diabetes mellitus Grandparent Family history of lung cancer Mother Depression Social History Social History Years smoked: 18 Smoking status: Former smoker Tobacco type: cigarettes Second hand tobacco smoke exposure: No Smoking end date: 03/15/20 Alcohol intake: never Substance use: never Substance use type: does not use Lack of Transportation: No Lack of Food: Never True Current Housing: I Have Housing Concerned About Future Housing: No Difficulty Paying Gas/Electric Bills: No Difficulty Paying for Meds: No Currently Unemployed: No Difficulty w/ Childcare or Family Care: No Living arrangements: with family Exam Const: General: healthy appearing, no acute distress and alert Nutritional Appearance: well nourished Orientation/consciousness: patient oriented x3 Limitations: no limitations Chest: Chest palpation & inspection: normal inspection of the chest and tenderness other (lateral lower left chest some tenderness to palpation) Resp: Effort & Inspection: normal respiratory effort Auscultation: clear to auscultation bilaterally Cardio: Rate: regular rate Rhythm: regular rhythm GI: GI Palp: Yes Soft to palpation Auscultation: normal bowel sounds Back/Spine/Pelvis: Back: no CVA tenderness Skin: General skin exam: normal color Rashes: no rashes Wounds: no wounds Neuro: General: patient oriented x3, moves all extremities and no focal motor deficits Speech: normal speech Extrem: General: normal to inspection and no clubbing, cyanosis or edema Psych: Mental Status: mental status grossly normal Affect: normal affect Attitude: cooperative Course Vital Signs Vital signs: Vital Signs Pulse Rate 61 10/05/23 08:18 Respiratory Rate 10 L 10/05/23 08:18 Blood Pressure 122/82 10/05/23 08:18 Pulse Oximetry 100 10/05/23 08:18 Temperature 97.8 F 10/05/23 08:19 Pulse Rate 58 L 10/05/23 10:47 Respiratory Rate 18 10/05/23 10:47 Blood Pressure 113/83 10/05/23 10:47 Pulse Oximetry 100 10/05/23 10:47 Oxygen Delivery Room Air 10/05/23 08:19 MDM - Chest Pain Differential Diagnosis Differential diagnosis: Likely fracture of rib, pneumothorax, atypical chest pain, costochondritis, chest pain and other (pleurisy) Medical Records Data Attestation: I reviewed the patient's medical records. Lab Data Attestation: I reviewed the patient's lab results. 09/14
== END 2023-10-05 10:48 | disposition home or self-care (01) ==
PROVIDERS: Emergency Provider Emergency Medicine; PCP Internal Medicine
DX: R07.9 Chest pain, unspecified (principal); F41.9 Anxiety disorder, unspecified; K21.9 Gastro-esophageal reflux disease without esophagitis; Z87.891 Personal history of nicotine dependence
CPT/HCPCS: 36415; 71046; 80053; 83690; 84484; 85025; 85610; 85730; 93005; 99284

== ENCOUNTER 2024-07-12 16:05 | Outpatient (CLI) | payer OTHER, SELFPAY ==
--- NOTE | ~2024-07-12 | MM_ITS ---
EXAMINATION: MM screening [facility] BI w [facility] HISTORY: Screening TECHNIQUE: Craniocaudal and mediolateral oblique 3-D tomosynthesis images were obtained and synthetic 2-D images were generated. CAD analysis was submitted and interpreted. COMPARISON: Comparison to multiple prior studies sequentially, with oldest reviewed study dated 03/16. BREAST PARENCHYMAL COMPOSITION: Not dense: There are scattered areas of fibroglandular density. FINDINGS: There is no evidence of suspicious mass, calcification, or architectural distortion to sugg est malignancy in either breast. There has been no suspicious interval change. IMPRESSION: 1. No mammographic evidence of malignancy. 2. Recommend routine screening mammography in one year. BI-RADS Category 1: Negative Reviewed, dictated and finalized at location A. RER
== END 2024-07-12 16:06 | disposition home or self-care (01) ==
PROVIDERS: PCP Family Medicine; Visit Provider Obstetrics & Gynecology
DX: Z12.31 Encounter for screening mammogram for malignant neoplasm of breast (principal)
CPT/HCPCS: 77063; 77067

== ENCOUNTER 2024-07-23 10:14 | Outpatient (CLI) | payer OTHER, SELFPAY ==
--- NOTE | ~2024-07-23 | XR_ITS ---
EXAM: XR lumbar spine 6V w bending DATE: 07/23/2024 10:41 HISTORY: LOW BACK PAIN . COMPARISON: MR lumbar spine 09/08/2012. FINDINGS: 5 nonrib-bearing lumbar-type vertebral bodies. Pedicles intact. Exaggerated lumbar lordosi s. No pars defect. Stable 2 mm retrolisthesis at L1-2. 2 mm retrolisthesis at L2-3 that worsens sligh tly in extension. 5 mm retrolisthesis at L4-5 that reduces in flexion. Vertebral body heights preserv ed. Mild disc space narrowing at L3-4 and L4-5. Normal facets and posterior elements. No fracture or dislocation. 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 Mild degenerative disc disease at L3-4 and L4 -5. Reviewed, dictated and finalized at location K. 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 Mild degenerative disc disease at L3-4 and L4-5.
== END 2024-07-23 10:15 | disposition home or self-care (01) ==
LOC: MICIMG 10:15
PROVIDERS: PCP Family Medicine; Visit Provider Chiropractor
DX: M54.50 Low back pain, unspecified (principal); M51.369 Other intervertebral disc degeneration, lumbar region without mention of lumbar back pain or lower extremity pain
CPT/HCPCS: 72114

== ENCOUNTER 2024-08-20 10:19 | Outpatient (CLI) | payer OTHER, SELFPAY ==
--- NOTE | ~2024-08-20 | MR_ITS ---
MRI of the lumbar spine Clinical History: Back pain, right foot numbness Technique: Axial T2-weighted images, and sagittal T1-weighted, T2-weighted, and T2 fat-sat images wer e acquired. Findings: There is no fracture or sublocation of the lumbar spine. Vertebral bodies maintain normal h eight and alignment. No bone marrow signal abnormality seen. At L1-L2, there is no disc bulge or herniation. No spinal canal stenosis or neural foraminal narrowin g. At L2-L3, there is no disc bulge or herniation. Minimal facet joint degenerative change present. No s gerardo canal stenosis or neural foraminal narrowing. L3-L4, there is no disc bulge or herniation. There is minimal facet arthropathy. No central canal gonzalo nosis or neural foraminal narrowing. At L4-L5, there is minimal disc bulge with minimal facet arthropathy. No central canal stenosis or ne ural foraminal narrowing. L5-S1, there is no disc bulge or herniation. No spinal canal stenosis or neural foraminal narrowing. Paravertebral soft tissues are unremarkable. Impression: Minimal degenerative change, as above. Reviewed, dictated and finalized at location M. Impression: Minimal degenerative change, as above.
== END 2024-08-20 10:20 | disposition home or self-care (01) ==
PROVIDERS: PCP Nurse Practitioner Adult Health; Visit Provider Nurse Practitioner Adult Health
DX: M54.50 Low back pain, unspecified (principal)
CPT/HCPCS: 72148

== ENCOUNTER 2025-04-04 07:59 | Outpatient (CLI) | payer OTHER, SELFPAY ==
--- NOTE | ~2025-04-04 | MMUS_ITS ---
EXAMINATION: MM diagnostic fabi LT w [facility], US breast LT limited INDICATION: 45-year old female; Nonfocal LEFT Breast pain superior location. COMPARISON: 07/12/2024 through 04/09/2021 TECHNIQUE: Digital Breast Tomosynthesis CC, MLO and ML views of the Left breast were obtained with computer-aided detection to assist in interpretation of the study. MAMMOGRAM FINDINGS: There are scattered areas of fibroglandular density. There are no suspicious masses, calcifications, architectural distortion or other abnormalities in Left breast. No mammographic abnormality correlates to the area of breast pain. LEFT BREAST ULTRASOUND FINDINGS: Targeted ultrasound at the area of the patient's pain in the Superior Left breast reveals no discrete cystic or solid lesions . IMPRESSION: No mammographic evidence of malignancy in the LEFT breast. No mammographic or sonographic abnormality correlates to the area of LEFT pain. RECOMMENDATIONS: 1. Medical management of patient's breast pain. 2. If the patient has high risk factors for developing breast cancers such as, but not limited to dense breasts, positive gene markers, first degree relative with breast cancer which is not tested for Gene markers, or greater than 20% lifetime risk of developing breast cancer, supplemental breast MRI screening (ultrasound if MRI is contraindicated), in addition to annual screening mammography, should be considered and discussed with the patient. BI-RADS 2, BENIGN Reviewed, dictated and finalized at location C. IMPRESSION: No mammographic evidence of malignancy in the LEFT breast. No mammographic or sonographic abnormality correlates to the area of LEFT pain. RECOMMENDATIONS: 1. Medical management of patient's breast pain. 2. If the patient has high risk factors for developing breast cancers such as, but not limited to dense breasts, positive gene markers, first degree relative with breast cancer which is not tested for Gene markers, or greater than 20% li fetime risk of developing breast cancer, supplemental breast MRI screening (ult rasound if MRI is contraindicated), in addition to annual screening mammography , should be considered and discussed with the patient. BI-RADS 2, BENIGN
== END 2025-04-04 08:00 | disposition home or self-care (01) ==
PROVIDERS: PCP Obstetrics & Gynecology; Visit Provider Obstetrics & Gynecology
DX: R92.8 Other abnormal and inconclusive findings on diagnostic imaging of breast (principal); N64.4 Mastodynia
CPT/HCPCS: 76642; 77061; 77065; G0279